=== PATIENT | male | born 1930 | race Hispanic/Latino ===

== ENCOUNTER 2019-11-06 11:30 | Emergency (ER) | payer OTHER ==
[~2019-11-06 11:30] MED LIST: ACET-66 PO; ALBU90AE IH; DABI150C PO; LACT1CAP38 PO; LISI40TA4 PO; METO50TA18 PO; TAMS0.4C32 PO
[2019-11-06 12:07] LABS: BASOPHILS % (AUTO) 0.3 % (0.0-5.0); EOSINOPHILS % (AUTO) 0.6 % (0.0-8.0); LYMPHOCYTES % (AUTO) 22.2 % (21.0-51.0); MEAN CORPUSCULAR HEMOGLOBIN 28.3 pg (27.0-33.0); MEAN CORPUSCULAR HGB CONC 31.8 g/dL (32.0-36.0); MONOCYTES % (AUTO) 10.5 % (3.0-13.0); NEUTROPHILS % (AUTO) 65.6 % (40.0-77.0); PLATELET COUNT (AUTO) 246 K/uL (130-400); RED BLOOD CELL COUNT(AUTO) 5.62 MIL/uL (4.50-6.20); RED CELL DISTRIBUTION WIDTH 13.2 % (11.0-15.5); WHITE BLOOD COUNT (AUTO) 10.3 K/uL (4.8-10.8)
[2019-11-06 12:15] LABS: CREATININE 0.9 mg/dL (0.5-1.5)
[2019-11-06 12:22] LABS: ALBUMIN 3.7 g/dL (3.5-5.0); TOTAL PROTEIN, SERUM 8.1 g/dL (6.0-8.3)
[2019-11-06] MEDS ORDERED: CEFTRIAXONE SODIUM 1 GM ONE (13:40)
[2019-11-06] MEDS ORDERED: IPRATROPIUM/ALBUTEROL SULFATE 3 ML SOLUTION IH ONE (13:40)
[2019-11-06] MEDS ORDERED: METHYLPREDNISOLONE SOD SUCC 125MG/2ML VIAL ONE (13:40)
[2019-11-06 14:07] LABS: APPEARANCE,URINE Clear (CLEAR); BILIRUBIN,URINE Negative (NEGATIVE); COLOR,URINE Yellow (YELLOW); GLUCOSE, URINE (UA) Negative (NEGATIVE); KETONES,URINE Negative (NEGATIVE); LEUKOCYTE ESTERASE ,URINE Negative (NEGATIVE); NITRATE,URINE Negative (NEGATIVE); OCCULT BLOOD,URINE Negative (NEGATIVE); PH,URINE 7.5 (5.0-8.0); PROTEIN,URINE Negative (NEGATIVE); UROBILINOGEN,URINE 0.2 mg/dL (0.2-1.0)
== END 2019-11-06 15:37 | disposition home or self-care (01) ==
LOC: EDH 11:30
DX: J20.9 Acute bronchitis, unspecified (principal); J44.1 Chronic obstructive pulmonary disease with (acute) exacerbation; I10 Essential (primary) hypertension; E78.5 Hyperlipidemia, unspecified; I25.10 Atherosclerotic heart disease of native coronary artery without angina pectoris; I48.91 Unspecified atrial fibrillation
CPT/HCPCS: 36415; 71045; 80053; 81003; 83880; 84484; 85025; 87804 ×2; 93005; 94640; 96374; 96375; 99285; J0696; J2930

== ENCOUNTER → 2020-02-23 | Outpatient (CLI) | payer OTHER | END | disposition home or self-care (01) | LOC: RAH 10:30 | PROVIDERS: ATTEND Urology | DX: N20.0 Calculus of kidney (principal); R31.29 Other microscopic hematuria | CPT/HCPCS: 76770 ==

== ENCOUNTER 2021-10-21 18:59 | Inpatient (IN) | payer OTHER ==
[~2021-10-21] VITALS: Ht 165.1 cm; Wt 27.2 kg
[~2021-10-21 18:59] MED LIST changes: -LISI40TA4 PO; +LISI40TA9 PO
[2021-10-21] MEDS ORDERED: FUROSEMIDE 40MG VIAL ONE (19:41)
[2021-10-21 19:47] LABS: BASOPHILS % (AUTO) 0.1 % (0.0-5.0); EOSINOPHILS % (AUTO) 1.1 % (0.0-8.0); HEMATOCRIT 46.9 % (42-54); LYMPHOCYTES % (AUTO) 14.8 % (21.0-51.0); MEAN CORPUSCULAR HEMOGLOBIN 26.5 pg (27.0-33.0); MEAN CORPUSCULAR HGB CONC 31.1 g/dL (32.0-36.0); MEAN CORPUSCULAR VOLUME 85.1 fL (79-99); NEUTROPHILS % (AUTO) 75.7 % (40.0-77.0); PLATELET COUNT (AUTO) 204 K/uL (130-400); RED BLOOD CELL COUNT(AUTO) 5.51 MIL/uL (4.50-6.20); WHITE BLOOD COUNT (AUTO) 15.9 K/uL (4.8-10.8)
[2021-10-21 19:58] LABS: CREATININE 1.1 mg/dL (0.5-1.5); POTASSIUM 3.6 mmol/L (3.5-5.1)
[2021-10-21 20:00] LABS: INR 1.21 (0.85-1.15)
[2021-10-21] MEDS ORDERED: FUROSEMIDE 40MG VIAL IV ONE (20:00)
[2021-10-21 20:01] LABS: PARTIAL THROMBOPLASTIN TIME 30.1 SEC (26.3-35.5)
[2021-10-21 20:02] LABS: ALBUMIN 4.4 g/dL (3.5-5.0); BILIRUBIN,TOTAL 0.9 mg/dL (0.2-1.0); TOTAL PROTEIN, SERUM 8.9 g/dL (6.0-8.3)
[2021-10-21] MEDS ORDERED: LORAZEPAM 2 MG/ML 1 ML VIAL ONE (20:27)
[2021-10-21] MEDS ORDERED: AZITHROMYCIN 500MG VIAL IVPB ONE (21:00)
[2021-10-21] MEDS ORDERED: IOHEXOL 350 MG/ML 100ML INFUS..BTL IV ONE (21:00)
[2021-10-21] MEDS ORDERED: SOLU-MEDROL 125MG VIAL IVP ONE (21:00)
[2021-10-21] MEDS ORDERED: CEFTRIAXONE 1G VIAL IVP ONE (21:00)
[2021-10-21] MEDS: SOLU-MEDROL 125MG VIAL IV SCH (21:30)
[2021-10-21] MEDS ORDERED: ACETAMINOPHEN 325 MG TAB PO PRN (21:30)
[2021-10-21] MEDS ORDERED: ONDANSETRON 4MG INJ IV PRN (21:30)
[2021-10-21] MEDS ORDERED: CEFTRIAXONE 1G VIAL IV SCH (21:30)
[2021-10-21] MEDS ORDERED: DOXYCYCLINE 100MG+NS 250ML 250 ML IV SCH (21:30)
[2021-10-21] MEDS ORDERED: BENZONATATE 100 MG CAPSULE PO PRN (21:30)
[2021-10-21] MEDS ORDERED: HYDRALAZINE 20MG/ML VIAL IV PRN (21:30)
[2021-10-21] MEDS ORDERED: LORAZEPAM 2 MG/ML 1 ML VIAL IVP ONE (21:40)
[2021-10-21] MEDS: IPRATROPIUM/ALBUTEROL SULFATE 3 ML SOLUTION IH SCH (22:00)
[2021-10-22 01:08] LABS: ABG BASE EXCESS -0.7 mmol/L (-2.0-3.0); ABG HCO3 23.4 mmol/L (21.0-28.0); ABG OXYGEN SATURATION 80.5 % (95.0-99.0); ABG PCO2 37 mmHg (35-48)
[2021-10-22] MEDS ORDERED: SODIUM CHLORIDE 3% FOR INHALATION 4 ML/AMP VIAL.NEB IH ONE (01:20)
[2021-10-22] MEDS ORDERED: AZITHROMYCIN 500MG+NS 250ML 250 ML IV ONE (01:45)
[2021-10-22] MEDS: IPRATROPIUM/ALBUTEROL SULFATE 3 ML SOLUTION IH SCH ×5 (02:01→23:25)
[2021-10-22 05:37] LABS: BASOPHILS % (AUTO) 0.1 % (0.0-5.0); EOSINOPHILS % (AUTO) 0.4 % (0.0-8.0); HEMATOCRIT 40.6 % (42-54); LYMPHOCYTES % (AUTO) 4.1 % (21.0-51.0); MEAN CORPUSCULAR HEMOGLOBIN 26.1 pg (27.0-33.0); MEAN CORPUSCULAR HGB CONC 31.5 g/dL (32.0-36.0); MEAN CORPUSCULAR VOLUME 82.7 fL (79-99); NEUTROPHILS % (AUTO) 90.3 % (40.0-77.0); PLATELET COUNT (AUTO) 175 K/uL (130-400); RED BLOOD CELL COUNT(AUTO) 4.91 MIL/uL (4.50-6.20); RED CELL DISTRIBUTION WIDTH 13.9 % (11.0-15.5); WHITE BLOOD COUNT (AUTO) 21.8 K/uL (4.8-10.8)
[2021-10-22 05:55] LABS: B-TYPE NATRIURETIC PEPTIDE 317 pg/mL (0-100)
[2021-10-22 06:15] LABS: ALBUMIN 3.5 g/dL (3.5-5.0); BILIRUBIN,TOTAL 1.1 mg/dL (0.2-1.0); CREATININE 1.2 mg/dL (0.5-1.5); MAGNESIUM 1.6 mg/dL (1.80-2.40); THYROID STIMULATING HORMONE 1.56 uIU/mL (0.36-3.74); TOTAL PROTEIN, SERUM 7.4 g/dL (6.0-8.3)
[2021-10-22] MEDS: SOLU-MEDROL 125MG VIAL IV SCH ×3 (06:32→21:33)
[2021-10-22 07:05] LABS: ABG BASE EXCESS 0.3 mmol/L (-2.0-3.0); ABG HCO3 25.3 mmol/L (21.0-28.0); ABG OXYGEN SATURATION 97.8 % (95.0-99.0); ABG PCO2 42 mmHg (35-48)
[2021-10-22] MEDS ORDERED: FUROSEMIDE 20MG VIAL IV SCH (09:00)
[2021-10-22] MEDS: FAMOTIDINE 20MG VIAL IV SCH ×2 (09:12→21:33)
[2021-10-22] MEDS: HEPARIN 5,000 UNIT VIAL SQ SCH ×3 (09:12→21:35)
[2021-10-22] MEDS: LEVOFLOXACIN 500 MG/D5W 100 ML 100 ML IV SCH (09:12)
[2021-10-22 09:20] VITALS: BP 111/58
[2021-10-22] MEDS ORDERED: PHARMACY COMMUNICATION MISC SCH (10:30)
[2021-10-22 11:00] VITALS: BP_SYST 115; BP_SYST 125; BP_DIAS 52; BP_DIAS 58
[2021-10-22] MEDS ORDERED: IPRATROPIUM/ALBUTEROL SULFATE 3 ML SOLUTION IH SCH (11:00)
[2021-10-22] MEDS ORDERED: METO50TA18 PO (12:08)
[2021-10-22] MEDS ORDERED: AMLO-257 PO (12:08)
[2021-10-22] MEDS ORDERED: ATOR10TA69 PO (12:08)
[2021-10-22] MEDS ORDERED: APIX5TAB PO (12:08)
[2021-10-22] MEDS: DOXYCYCLINE 100MG+NS 250ML 250 ML IV SCH (14:57)
[2021-10-22 16:00] VITALS: BP 125/58
[2021-10-22] MEDS ORDERED: POTASSIUM CHLORIDE 20MEQ/100ML 100 ML IV PRN (17:00)
[2021-10-22] MEDS ORDERED: KCL 20 MEQ ERTAB PO PRN (17:00)
[2021-10-22] MEDS ORDERED: LIDOCAINE HCL-MPF 1% 2ML VIAL IV PRN (17:00)
[2021-10-22] MEDS ORDERED: POTASSIUM CHLORIDE 10% ELIXIR 20 MEQ/15 ML UDCUP PO PRN (17:00)
[2021-10-22] MEDS ORDERED: MAGNESIUM 2GM PREMIX 50ML 50 ML IV PRN (17:00)
[2021-10-22] MEDS ORDERED: IPRATROPIUM/ALBUTEROL SULFATE 3 ML SOLUTION IH ONE (18:19)
[2021-10-22 21:34] VITALS: BP 107/52
[2021-10-22 23:57] VITALS: BP 131/63
[2021-10-23] MEDS: DOXYCYCLINE 100MG+NS 250ML 250 ML IV SCH ×2 (03:39→14:31)
[2021-10-23 03:57] LABS: HEMATOCRIT 40.1 % (42-54); MEAN CORPUSCULAR HEMOGLOBIN 26.2 pg (27.0-33.0); MEAN CORPUSCULAR HGB CONC 30.9 g/dL (32.0-36.0); MEAN CORPUSCULAR VOLUME 84.8 fL (79-99); PLATELET COUNT (AUTO) 182 K/uL (130-400); RED BLOOD CELL COUNT(AUTO) 4.73 MIL/uL (4.50-6.20); RED CELL DISTRIBUTION WIDTH 14.1 % (11.0-15.5); WHITE BLOOD COUNT (AUTO) 22.6 K/uL (4.8-10.8)
[2021-10-23 04:08] LABS: CREATININE 1.2 mg/dL (0.5-1.5); POTASSIUM 3.5 mmol/L (3.5-5.1)
[2021-10-23 04:09] VITALS: BP 126/66
[2021-10-23] MEDS: SOLU-MEDROL 125MG VIAL IV SCH ×3 (05:00→21:24)
[2021-10-23] MEDS: IPRATROPIUM/ALBUTEROL SULFATE 3 ML SOLUTION IH SCH ×2 (06:20→11:22)
[2021-10-23 07:30] VITALS: BP 127/68
[2021-10-23] MEDS: LEVOFLOXACIN 500 MG/D5W 100 ML 100 ML IV SCH (09:44)
[2021-10-23] MEDS: FAMOTIDINE 20MG VIAL IV SCH ×2 (09:44→21:22)
[2021-10-23] MEDS: HEPARIN 5,000 UNIT VIAL SQ SCH (09:50)
[2021-10-23 11:00] VITALS: BP 137/67
[2021-10-23 16:00] VITALS: BP 126/62
[2021-10-23] MEDS: IPRATROPIUM 0.5 MG/2.5 ML INH IH SCH ×2 (18:43→23:40)
[2021-10-23 20:00] VITALS: BP 132/61
[2021-10-23] MEDS: APIXABAN 5 MG TABLET PO SCH (21:23)
[2021-10-23] MEDS: METOPROLOL TARTRATE 50 MG TAB PO SCH (21:23)
[2021-10-23] MEDS: ATORVASTATIN 10 MG TABLET PO SCH (21:23)
[2021-10-23] MEDS ORDERED: HEPARIN 5,000 UNIT VIAL SQ SCH (22:00)
[2021-10-24] VITALS: BP 144/74
[2021-10-24] MEDS: DOXYCYCLINE 100MG+NS 250ML 250 ML IV SCH ×2 (03:16→15:57)
[2021-10-24 04:00] VITALS: BP 147/83
[2021-10-24 04:19] LABS: MEAN CORPUSCULAR HEMOGLOBIN 26.2 pg (27.0-33.0); MEAN CORPUSCULAR HGB CONC 30.5 g/dL (32.0-36.0); MEAN CORPUSCULAR VOLUME 85.8 fL (79-99); PLATELET COUNT (AUTO) 189 K/uL (130-400); RED BLOOD CELL COUNT(AUTO) 4.66 MIL/uL (4.50-6.20); RED CELL DISTRIBUTION WIDTH 14.3 % (11.0-15.5); WHITE BLOOD COUNT (AUTO) 18.7 K/uL (4.8-10.8)
[2021-10-24 04:31] LABS: ALBUMIN 3.1 g/dL (3.5-5.0); BILIRUBIN,TOTAL 0.7 mg/dL (0.2-1.0); MAGNESIUM 2.2 mg/dL (1.80-2.40); POTASSIUM 4.1 mmol/L (3.5-5.1); TOTAL PROTEIN, SERUM 7.1 g/dL (6.0-8.3)
[2021-10-24 05:00] LABS: BAND NEUTROPHILS % (MANUAL) 5 % (0-2); LYMPHOCYTES % (MANUAL) 4 % (22-44); MAN.DIFF COMMENT-IMPRESSION MANUAL DIFFERENTIAL; MONOCYTES % (MANUAL) 1 % (2-9); SEGMENTED NEUTROPHILS % 90 % (40-70)
[2021-10-24 05:01] LABS: PLATELET MORPHOLOGY COMMENT ADEQUATE
[2021-10-24] MEDS: SOLU-MEDROL 125MG VIAL IV SCH (06:00)
[2021-10-24 07:30] VITALS: BP 129/69
[2021-10-24] MEDS: IPRATROPIUM 0.5 MG/2.5 ML INH IH SCH ×4 (07:35→23:03)
[2021-10-24] MEDS: TAMSULOSIN HCL 0.4 MG CAP.ER.24H PO SCH (09:00)
[2021-10-24 11:00] VITALS: BP 121/65
[2021-10-24] MEDS: FAMOTIDINE 20MG VIAL IV SCH ×2 (11:03→19:55)
[2021-10-24] MEDS: AMLODIPINE 5 MG TAB PO SCH (11:04)
[2021-10-24] MEDS: LEVOFLOXACIN 500 MG/D5W 100 ML 100 ML IV SCH (11:04)
[2021-10-24] MEDS: APIXABAN 5 MG TABLET PO SCH ×2 (11:05→19:55)
[2021-10-24] MEDS: LISINOPRIL 40 MG TABLET PO SCH (11:11)
[2021-10-24] MEDS: INSULIN HUMULIN R 100 UNIT/ML 3ML SQ SCH ×2 (11:30→20:29)
[2021-10-24 16:00] VITALS: BP 142/76
[2021-10-24] MEDS ORDERED: DIPHENHYDRAMINE 2% CREAM 30 GM TP PRN (18:30)
[2021-10-24] MEDS: METOPROLOL TARTRATE 50 MG TAB PO SCH (19:55)
[2021-10-24] MEDS: ATORVASTATIN 10 MG TABLET PO SCH (19:55)
[2021-10-24 20:00] VITALS: BP 138/75
[2021-10-25] VITALS: BP 138/70
[2021-10-25] MEDS: DOXYCYCLINE 100MG+NS 250ML 250 ML IV SCH ×2 (03:10→15:02)
[2021-10-25 04:00] VITALS: BP 138/69
[2021-10-25] MEDS: INSULIN HUMULIN R 100 UNIT/ML 3ML SQ SCH ×3 (05:39→16:30)
[2021-10-25 05:51] LABS: HEMATOCRIT 37.6 % (42-54); MEAN CORPUSCULAR HEMOGLOBIN 26.4 pg (27.0-33.0); MEAN CORPUSCULAR HGB CONC 31.4 g/dL (32.0-36.0); MEAN CORPUSCULAR VOLUME 84.1 fL (79-99); RED BLOOD CELL COUNT(AUTO) 4.47 MIL/uL (4.50-6.20); RED CELL DISTRIBUTION WIDTH 14.2 % (11.0-15.5); WHITE BLOOD COUNT (AUTO) 14.3 K/uL (4.8-10.8)
[2021-10-25 05:58] LABS: ALBUMIN 2.9 g/dL (3.5-5.0); BILIRUBIN,TOTAL 0.7 mg/dL (0.2-1.0); CREATININE 0.9 mg/dL (0.5-1.5); MAGNESIUM 1.9 mg/dL (1.80-2.40); POTASSIUM 3.4 mmol/L (3.5-5.1); TOTAL PROTEIN, SERUM 6.6 g/dL (6.0-8.3)
[2021-10-25] MEDS: IPRATROPIUM 0.5 MG/2.5 ML INH IH SCH ×2 (06:07→11:07)
[2021-10-25 07:30] VITALS: BP 126/78
[2021-10-25] MEDS ORDERED: PREDNISONE 20 MG TABLET PO SCH (09:00)
[2021-10-25] MEDS: FAMOTIDINE 20MG VIAL IV SCH (09:17)
[2021-10-25] MEDS: LEVOFLOXACIN 500 MG/D5W 100 ML 100 ML IV SCH (09:17)
[2021-10-25] MEDS: LISINOPRIL 40 MG TABLET PO SCH (09:18)
[2021-10-25] MEDS: TAMSULOSIN HCL 0.4 MG CAP.ER.24H PO SCH (09:18)
[2021-10-25] MEDS: APIXABAN 5 MG TABLET PO SCH (09:18)
[2021-10-25] MEDS: AMLODIPINE 5 MG TAB PO SCH (09:18)
[2021-10-25 11:00] VITALS: BP 142/75
[2021-10-25] MEDS ORDERED: TIOT18CA3 IH (15:57)
[2021-10-25] MEDS ORDERED: AZIT500T4 PO (15:57)
[2021-10-25] MEDS ORDERED: PRED20TA3 PO (15:57)
[2021-10-25 16:00] VITALS: BP 138/73
== END 2021-10-25 19:00 | disposition home or self-care (01) | DRG 177 ==
LOC: EDH 18:59 → EDHIP 21:12 → OBSVTOIN 21:12 → 4BH 10-22 09:23
PROVIDERS: ADMIT Internal Medicine; ATTEND Internal Medicine
PROC: 5A09357 Assistance with Respiratory Ventilation, Less than 24 Consecutive Hours, Continuous Positive Airway Pressure (ICD-10-PCS; principal; 2021-10-21)
DX: J15.6 Pneumonia due to other Gram-negative bacteria (principal); J96.01 Acute respiratory failure with hypoxia; I50.31 Acute diastolic (congestive) heart failure; J44.0 Chronic obstructive pulmonary disease with (acute) lower respiratory infection; J44.1 Chronic obstructive pulmonary disease with (acute) exacerbation; I48.20 Chronic atrial fibrillation, unspecified; I50.32 Chronic diastolic (congestive) heart failure; I11.0 Hypertensive heart disease with heart failure; E78.5 Hyperlipidemia, unspecified; I27.20 Pulmonary hypertension, unspecified; Z20.822 Contact with and (suspected) exposure to COVID-19; Z79.899 Other long term (current) drug therapy; Z87.01 Personal history of pneumonia (recurrent); Z87.891 Personal history of nicotine dependence; Z79.01 Long term (current) use of anticoagulants
CPT/HCPCS: 36415; 36600; 71045; 71275; 80048; 80053; 82435; 82550; 82803; 82947; 82948; 83036; 83605; 83735; 83874; 83880; 84132; 84295; 84443; 84484; 85018; 85025; 85027; 85610; 85730; 87040; 87071; 87205; 87635; 87804; 93005; 93306; 93356; 94640; 94660; 94664; 94760; C9803; G0378; J0456; J0696; J1644; J1940; J1956; J2060; J2930; J3475; J3490; Q9967